=== PATIENT | male | born 1955 | race African-American/Black ===

== ENCOUNTER 2022-10-05 05:41 | Emergency (ER) | payer OTHER, MEDICAID ==
[~2022-10-05] VITALS: Ht 170.2 cm; Wt 78.3 kg
[2022-10-05] MEDS ORDERED: CLIN300C70 PO (06:44)
[2022-10-05] MEDS ORDERED: cefTRIAXone SOD 1,000 MG VL IM ONE (06:45)
[2022-10-05 07:08] VITALS: BP 132/89
== END 2022-10-05 07:18 | disposition home or self-care (01) ==
LOC: ER 05:41
DX: S60.561A Insect bite (nonvenomous) of right hand, initial encounter (principal); Z88.1 Allergy status to other antibiotic agents; W57.XXXA Bitten or stung by nonvenomous insect and other nonvenomous arthropods, initial encounter; Y93.89 Activity, other specified; Y92.89 Other specified places as the place of occurrence of the external cause; Y99.8 Other external cause status
CPT/HCPCS: 96372; 99283; J0696